=== PATIENT | male | born 1945 | race Caucasian/White ===

== ENCOUNTER 2018-02-17 14:57 | Emergency (ER) | payer OTHER ==
[~2018-02-17] VITALS: Ht 177.8 cm; Wt 83.5 kg
[2018-02-17 14:57] VITALS: BP_SYST 132
[2018-02-17] MEDS ORDERED: FAMOTIDINE 20 MG TABLET PO ONE (15:15)
[2018-02-17] MEDS ORDERED: PREDNISONE 20 MG TABLET PO ONE (15:15)
[2018-02-17 15:24] LABS: BASOPHILS # (AUTO) 0.1 K/uL (0.0-0.2); BASOPHILS % (AUTO) 0.8 % (0.0-2.0); EOSINOPHILS # (AUTO) 0.1 K/uL (0.0-0.4); HEMATOCRIT 47.6 % (36-54); HEMOGLOBIN 16.4 g/dL (14.0-18.0); LYMPHOCYTES # (AUTO) 1.8 K/uL (1.0-5.5); LYMPHOCYTES % (AUTO) 20.3 % (20.5-51.5); MEAN CORPUSCULAR HEMOGLOBIN 36 pg (27-31); MEAN CORPUSCULAR HGB CONC 35 % (32-36); MEAN CORPUSCULAR VOLUME 103 fL (79.0-98.0); MONOCYTES # (AUTO) 0.4 K/uL (0.0-1.0); MONOCYTES % (AUTO) 4.8 % (1.7-9.3); NEUTROPHILS # (AUTO) 6.6 K/uL (1.8-7.7); NEUTROPHILS % (AUTO) 73.1 % (40.0-70.0); PLATELET COUNT (AUTO) 205 K/uL (130-430); RED BLOOD CELL COUNT(AUTO) 4.61 MIL/uL (4.2-6.2); RED CELL DISTRIBUTION WIDTH 12.7 % (9.0-15.0)
[2018-02-17 15:44] LABS: ANION GAP 10 (5-15); CHLORIDE 103 mmol/L (98-107); GLUCOSE 166 mg/dL (70-99); POTASSIUM 3.1 mmol/L (3.5-5.1); SODIUM SERUM 143 mmol/L (136-145)
[2018-02-17 15:45] LABS: CALCIUM 8.5 mg/dL (8.4-11.0); CREATININE 1.13 mg/dL (0.55-1.30); UREA NITROGEN, BLOOD 18 mg/dL (8-21)
[2018-02-17 15:52] LABS: ALANINE AMINOTRANSFERASE 20 U/L (12-78); ALBUMIN 3.1 g/dL (3.4-4.8); ASPARTATE AMINOTRANSFERASE 19 U/L (10-37); TOTAL BILIRUBIN 0.6 mg/dL (0.0-1.0)
[2018-02-17] MEDS ORDERED: NITROGLYCERIN 0.4 MG TAB.SUBL SL ONE (16:15)
[2018-02-17] MEDS ORDERED: POTASSIUM CHLORIDE 20 MEQ/PKT PACKET PO ONE (16:15)
[2018-02-17] MEDS ORDERED: ONDANSETRON HCL 4 MG/2 ML VIAL IVP ONE (16:15)
[2018-02-17] MEDS ORDERED: ASPIRIN 325 MG TABLET PO ONE (16:15)
[2018-02-17 17:30] VITALS: BP_SYST 156
== END 2018-02-17 17:30 | disposition home or self-care (01) ==
LOC: SED 14:57
DX: S60.463A Insect bite (nonvenomous) of left middle finger, initial encounter (principal); R07.89 Other chest pain; I10 Essential (primary) hypertension; E87.6 Hypokalemia; F17.200 Nicotine dependence, unspecified, uncomplicated; Z85.46 Personal history of malignant neoplasm of prostate; W57.XXXA Bitten or stung by nonvenomous insect and other nonvenomous arthropods, initial encounter; Y93.89 Activity, other specified; Y92.89 Other specified places as the place of occurrence of the external cause; Y99.8 Other external cause status
CPT/HCPCS: 36415; 71045; 80053; 84484; 85025; 93005; 96374; 99285; J2405; J7512

== ENCOUNTER 2020-01-02 09:56 | Inpatient (IN) | payer OTHER ==
[~2020-01-02] VITALS: Ht 180.3 cm; Wt 80.7 kg
[2020-01-02 09:56] VITALS: BP_SYST 170
[2020-01-02] MEDS ORDERED: ASPIRIN 81 MG TAB.CHEW PO ONE (10:15)
[2020-01-02 10:29] LABS: BASOPHILS % (AUTO) 0.5 % (0.0-2.0); EOSINOPHILS # (AUTO) 0.4 K/uL (0.0-0.4); EOSINOPHILS % (AUTO) 4.5 % (0.0-4.0); HEMATOCRIT 42.7 % (36-54); HEMOGLOBIN 14.8 g/dL (14.0-18.0); LYMPHOCYTES # (AUTO) 1.9 K/uL (1.0-5.5); LYMPHOCYTES % (AUTO) 22.7 % (20.5-51.5); MEAN CORPUSCULAR HEMOGLOBIN 36 pg (27-31); MEAN CORPUSCULAR HGB CONC 35 % (32-36); MEAN CORPUSCULAR VOLUME 103 fL (79.0-98.0); MONOCYTES # (AUTO) 0.8 K/uL (0.0-1.0); MONOCYTES % (AUTO) 9.2 % (1.7-9.3); NEUTROPHILS # (AUTO) 5.2 K/uL (1.8-7.7); NEUTROPHILS % (AUTO) 63.1 % (40.0-70.0); PLATELET COUNT (AUTO) 206 K/uL (130-430); RED BLOOD CELL COUNT(AUTO) 4.17 MIL/uL (4.2-6.2); WHITE BLOOD COUNT (AUTO) 8.2 K/uL (4.8-10.8)
[2020-01-02 10:40] LABS: ANION GAP 10 (5-15); CALCIUM 8.6 mg/dL (8.4-11.0); CHLORIDE 98 mmol/L (98-107); CREATININE 1.07 mg/dL (0.55-1.30); GLUCOSE 111 mg/dL (70-99); POTASSIUM 3.8 mmol/L (3.5-5.1); SODIUM SERUM 134 mmol/L (136-145); UREA NITROGEN, BLOOD 12 mg/dL (8-21)
[2020-01-02 10:46] LABS: ALANINE AMINOTRANSFERASE 30 U/L (12-78); ALBUMIN 3.3 g/dL (3.4-4.8); ASPARTATE AMINOTRANSFERASE 22 U/L (10-37); LIPASE 69 U/L (73-393); TOTAL BILIRUBIN 0.7 mg/dL (0.0-1.0)
[2020-01-02] MEDS ORDERED: NITROGLYCERIN 1 INCH (GM) OINT. TP ONE (11:15)
[2020-01-02] MEDS ORDERED: *LOVENOX 1MG/KG Q12H/PHARMACY XX PRN (12:30)
[2020-01-02] MEDS ORDERED: ENOXAPARIN SODIUM 80 MG/0.8 ML SYRINGE SUBCUT ONE (12:45)
[2020-01-02 13:09] VITALS: BP_SYST 151
[2020-01-02 17:03] VITALS: BP_SYST 159
[2020-01-02] MEDS ORDERED: LOSARTAN POTASSIUM 50 MG TABLET (COZAAR) PO ONE (17:30)
[2020-01-02 20:00] VITALS: BP_SYST 153
[2020-01-02] MEDS ORDERED: ENOXAPARIN SODIUM 80 MG/0.8 ML SYRINGE SUBCUT SCH (21:00)
[2020-01-02] MEDS: METOPROLOL TARTRATE 25 MG TABLET PO SCH (21:36)
[2020-01-02] MEDS: COLCHICINE 0.6 MG TABLET PO SCH (21:36)
[2020-01-03 00:40] VITALS: BP_SYST 128
[2020-01-03 06:30] LABS: ALANINE AMINOTRANSFERASE 24 U/L (12-78); ANION GAP 8 (5-15); ASPARTATE AMINOTRANSFERASE 15 U/L (10-37); CALCIUM 8.2 mg/dL (8.4-11.0); CHLORIDE 99 mmol/L (98-107); CHOLESTEROL 130 mg/dL (<200); CREATININE 1.06 mg/dL (0.55-1.30); GLUCOSE 90 mg/dL (70-99); HDL CHOLESTEROL 40 mg/dL (>45); LDL CHOLESTEROL 73 mg/dL (<100); SODIUM SERUM 135 mmol/L (136-145); THYROID STIMULATING HORMONE 2.88 uIu/mL (0.34-4.82); TOTAL BILIRUBIN 0.5 mg/dL (0.0-1.0); TRIGLYCERIDES 62 mg/dL (30-150); UREA NITROGEN, BLOOD 15 mg/dL (8-21)
[2020-01-03 08:00] VITALS: BP_SYST 159
[2020-01-03] MEDS: METOPROLOL TARTRATE 25 MG TABLET PO SCH (08:09)
[2020-01-03] MEDS: COLCHICINE 0.6 MG TABLET PO SCH (08:09)
[2020-01-03] MEDS ORDERED: ASPIRIN 325 MG TABLET PO SCH (09:00)
[2020-01-03] MEDS ORDERED: LOSARTAN POTASSIUM 50 MG TABLET (COZAAR) PO SCH (09:00)
[2020-01-03] MEDS ORDERED: ASPIRIN 81 MG TAB.CHEW PO SCH (09:00)
[2020-01-03] MEDS ORDERED: COLC0.6T67 PO (10:21)
[2020-01-03] MEDS ORDERED: ASA81 PO (10:21)
[2020-01-03] MEDS ORDERED: METO25TA6 PO (10:21)
[2020-01-03] MEDS ORDERED: LOSA50TA3 PO (10:21)
[2020-01-03 10:38] VITALS: BP_SYST 116
[2020-01-03 10:40] VITALS: BP_SYST 116
== END 2020-01-03 11:30 | disposition home or self-care (01) | DRG 315 ==
LOC: SED 09:56 → STU 12:38
PROVIDERS: ADMIT Internal Medicine Hospice and Palliative Medicine; ATTEND Internal Medicine Hospice and Palliative Medicine
DX: I30.9 Acute pericarditis, unspecified (principal); I24.9 Acute ischemic heart disease, unspecified; I10 Essential (primary) hypertension; I45.10 Unspecified right bundle-branch block; Z85.46 Personal history of malignant neoplasm of prostate; Z87.891 Personal history of nicotine dependence; Z80.8 Family history of malignant neoplasm of other organs or systems
CPT/HCPCS: 36415; 71045; 80053; 80061; 82550-TC; 83690-TC; 83880; 84443-TC; 84484; 85025; 85379; 93005; 93306; 96372; 99285; G0378; J1650